=== PATIENT | female | born 1975 | race Caucasian/White ===

== ENCOUNTER 2016-11-12 09:07 | Emergency (ER) | payer SELFPAY ==
[2016-11-12 10:21] VITALS: BP 168/89
== END 2016-11-12 10:21 | disposition home or self-care (01) ==
LOC: ED 09:07
DX: S61.422A Laceration with foreign body of left hand, initial encounter (principal); J45.909 Unspecified asthma, uncomplicated; W01.0XXA Fall on same level from slipping, tripping and stumbling without subsequent striking against object, initial encounter; Y93.89 Activity, other specified; Y99.8 Other external cause status; Y92.89 Other specified places as the place of occurrence of the external cause
CPT/HCPCS: 90715; J2001